=== PATIENT | male | born 1955 | race Caucasian/White ===

== ENCOUNTER 2024-11-09 09:24 | Emergency (ER) | payer MEDICARE, OTHER, SELFPAY ==
--- OUTSIDE RECORDS SUMMARY | 2024-11-09 09:26 | XMS_ITS | Clinical Summary ---
Author Organization [facility] Address [address] [place] [address] Care Team Providers Care Heel Painter Name Role Phone Elsewhere, Pcp Primary Care Provider Unavailabl e Source Comments Patient records contain information from all sites at [facility]. For routine questions regarding patient records, call [phone] during business hours, M-F 8:00 AM - 5:00 PM Central Time. Record requests for emergency care only can be directed to [phone] at any time.[facility] Allergies No known active allergies Medications clobetasoL (TEMOVATE) 0.05 % cream Apply topically as needed. 4 Active ibuprofen (ADVIL,MOTRIN) 200 mg capsule Take 200 mg by mouth as needed for pain. Active Hospital, Clinic, or Other Facility Administered Medication Ordered Dose Route Frequency Start Date End Date Status lidocaine (PF) 10 mg/mL (1 %) injection 10 mL (XYLOCAINE)Indications:Neurop athy Peroneal Left,Vasculitis 10 mL inj Once 05/15/2020 Active Active Problems Problem Noted Date Diagnosed Date Abnormal Magnetic Resonance Imaging Lumbar Spine 05/20/2020 Neuropathy Peripheral 05/01/2020 Overview (05/01/2020): Added automatically from request for surgery [id number] Family History Medical History Relation Name Comments Dementia Father Don Mejia Hypertension Father Don Mejia Coronary artery disease Mother Isi Mejia Hear t Attack,stents Dementia Paternal Grandmother Lulu Mejia gra ndmother Relation Name Status Comments Brother Don Mejia Father Don Mejia Mother Isi Mejia Paternal Grandmoisac Mejia Social History Tobacco Use Types Packs/Day Years Used Date Smoking Tobacco: Former Cigarettes Passive Smoke Exposure: Never Smokeless Tobacco: Never Tobacco Cessation:Counseling Given: Not Answered Alcohol Use Standard Drinks/Week Comments Yes 10 (1 standard drink = 0.6 oz pu re alcohol) Humiliation, Afraid, Rape, and Kick questionnair e Answer Date Recorded Within the last year, have y ou been afraid of your partner or ex-partner? No 08/04/2022 Within the last year, have y ou been humiliated or emotionally abused in other ways by your partner or ex-partner? No Within the last year, have y ou been kicked, hit, slapped, or otherwise physically hurt by your partner or ex-partner? No 08/04/2022 Within the last year, have y ou been raped or forced to have any kind of sexual activity by your partner or ex-partner? No 08/04/2022 Hunger Vital Sign Answer Date Recorded Within the past 12 months, y ou worried that your food would run out before you got the money to buy more. Never true 08/05/19 23 Within the past 12 months, t he food you bought just didn't last and you didn't have money to get more. Never true 08/04/2022 PRAPARE - Transportation Answer Date Re corded In the past 12 months, has l ack of transportation kept you from medical appointments or from getting medications? No 07/11 In the past 12 months, has l ack of transportation kept you from meetings, work, or from getting things needed for daily living? No 08/04/2022 Housing Stability Vital Sign Answer Gen e Recorded In the last 12 months, was t here a time when you were not able to pay the mortgage or rent on time? No 08/04/2022 In the last 12 months, how many places have you lived? 1 08/04/2022 In the last 12 months, was t here a time when you did not have a steady place to sleep or slept in a prison (including now)? No 08/04/2022 Education Answer Date Recorded What is the highest level of school you have completed or the highest degree you have received? Bachelor's degree (e.g., BA, AB, BS) 04/26/2020 Sex and Gender Information Value Date Recorded Sex Assigned at Male 03/22/2021 7:56 PM GASOLINE SERVICE ATTENDANT Legal Sex Male 8:59 AM GASOLINE SERVICE ATTENDANT Gender Identity Male 04/21/2020 4:02 PM GASOLINE SERVICE ATTENDANT Sexual Orientation Straight 04/21/2020 4: 02 PM GASOLINE SERVICE ATTENDANT Last Filed Vital Signs Vital Sign Reading Time Taken Comments Blood Pressure 128/74 08/09/2023 2:57 PM CDT Pulse 79 08/09/2023 2:57 PM CDT Temperature 36.6 C (97.9 F) 08/09/2023 2:57 PM CDT Respiratory Rate 13 05/06/2020 2:15 PM GASOLINE SERVICE ATTENDANT Oxygen Saturation 99% 05/06/2020 2:15 PM GASOLINE SERVICE ATTENDANT Inhaled Oxygen Concentration - - Weight 86.6 kg (190 lb 14.7 oz) 08/09/2023 2:57 PM CDT Height 187.6 cm (6' 1.86) 08/09/2023 2:57 PM CD T Body Mass Index 24.61 08/09/2023 2:57 PM CDT Plan of Treatment Health Maintenance Due Date Last Done Comments CT Colonography 1955 Colonoscopy 1955 FIT 1955 COVID-19 Vaccine ( season) 2023 01/30/2023, 12/16/2021, 07/10/2021, Additional history exists Depression Screening (Annual PHQ-2) 04/11/2024 Fall Risk Screen (Annual) 04/11/2024 Influenza Vaccine (#1) 2025 , 12/25/2021, 12/25/2020, Additional history exists Fasting Glucose for Diabetes Screening 08/08/2026 08/09/2023, 08/18/2021, 08/14/2021, Additional history exists Cologuard 10/16/2026 10/17/2023 Colorectal Cancer Screening 10/16/2026 DTaP,Tdap,and Td Vaccines (3 - Td or Tdap) 08/18/2030 08/18/2020, 07/05/2009 Zoster Vaccines Completed 11/13/2019, 06/2019, 06/09/2015 Hepatitis B Screening Discontinued 04/29/2020 Abdominal Aortic Aneurysm (AAA) Screen Completed 05/18/2020 Pneumococcal vaccine (50+ years) Completed 08/14/2021 HPV Vaccines Aged Out No longer eligi ble based on patient's age to complete this topic IPV Vaccines Aged Out No longer eligi ble based on patient's age to complete this topic Procedures Procedure Name Priority Date/Time Associated Diagnosis Comments COMPREHENSIVE METABOLIC PANEL, S/P Routine 08/09/2023 12:26 PM CDT Neuropathy Peripheral Vasculitic US ABDOMEN LIMITED LIVER RAD - Routine (most inpatients and all outpatients) 05/18/2020 2:37 PM GASOLINE SERVICE ATTENDANT Lesion Liver HEPATITIS B SURFACE ANTIGEN Routine 04/29/2020 9:29 AM GASOLINE SERVICE ATTENDANT Neuropathy Peroneal Left from Last 3 Months or Most Recently Relevant to Health Maintenance Results * Comprehensive Metabolic Panel (08/09/2023 12:26 PM CDT) Potassium, S 5.2 3.6 - 5.2 mmol/L 08/09/2023 4:20 PM CDT DTL Sodium, S 139 135 - 145 mmol/L 08/09/2023 4:20 PM CDT DTL Chloride, S 102 98 - 107 mmol/L 08/09/2023 4:20 PM CDT DTL Bicarbonate, S 26 22 - 29 mmol/L 08/09/2023 4:20 PM CDT DTL Anion Gap 11 7 - 15 08/09/2023 4:20 PM CDT DTL BUN (Blood Urea Nitrogen), S 17 8 - 24 mg/dL 08/09/2023 4:20 PM CDT DTL Creatinine 0.98 0.74 - 1.35 mg/dL 08/09/2023 4:20 PM CDT DTL Estimated GFR (eGFR) 83 >=60 mL/min/BS A 08/09/2023 4:20 PM CDT DTL Comment: Estimated GFR calculated using the 2020 CKD_EPI creatinine equation. Calcium, Total, S 9.6 8.8 - 10.2 mg/dL 08/09/2023 4:20 PM CDT DTL Glucose, S 84 70 - 140 mg/dL 08/09/2023 4:20 PM CDT DTL Protein, Total, S 6.3 6.3 - 7.9 g/dL 08/09/2023 4:20 PM CDT DTL Albumin, S 4.7 3.5 - 5.0 g/dL 08/09/2023 4:20 PM CDT DTL Aspartate Aminotransferase (AST), S 29 8 - 48 U/L 08/09/2023 4:20 PM CDT DTL Alkaline Phosphatase, S 52 40 - 129 U/L 08/09/2023 4:20 PM CDT DTL Alanine Aminotransferase (ALT), S 23 7 - 55 U/L 08/09/2023 4:20 PM CDT DTL Bilirubin, Total, S 0.7 0.0 - 1.2 mg/dL 08/09/2023 4:20 PM CDT DTL Blood (Blood, Venous) 08/09/2023 12:26 PM CDT 08/09/2023 1:01 PM CDT us Ayo Fox M.D. LAB BLOOD ADD-ON Final Res ult [address] [address] [place] [address], [facility] [address] [place] [address] * US Abdomen Limited Liver (05/18/2020 2:37 PM GASOLINE SERVICE ATTENDANT) Anatomical Region Laterality Modality Abdomen, Ultrasound RST LOS, Ultrasound ARZ LOS, Ultrasound FLA LOS N/A Ultrasound 05/18/2020 3:32 PM GASOLINE SERVICE ATTENDANT Impressions 05/18/2020 3:35 PM GASOLINE SERVICE ATTENDANT Small benign-appearing hepatic cyst. Examination otherwise unremarkable. Narrative 05/18/2020 3:35 PM GASOLINE SERVICE ATTENDANT EXAM: US ABDOMEN LIMITED LIVER COMPARISON: None FINDINGS: Liver: 1.2 x 0.9 cm cyst in the right hepatic lobe, liver otherwise normal. This should correlate with the subcentimeter hypodensity seen on PET CT 05/14/2020 (image 202). Bile ducts: Not dilated. Procedure Note Benitez Landry M.B., B.Ch. - 05/18/2020 EXAM: US ABDOMEN LIMITED LIVER COMPARISON: None FINDINGS: Liver: 1.2 x 0.9 cm cyst in the right hepatic lobe, liver otherwisenormal. This should correlate with the subcentimeter hypodensity seen on PET CT05/14/2020 (image 202). Bile ducts: Not dilated. IMPRESSION: Small benign-appearing hepatic cyst. Examination otherwise unremarkable. us Feliciano Warren M.D. IMG US PROCEDURES Final Resul t * Hepatitis B Surface Antigen (04/29/2020 9:29 AM GASOLINE SERVICE ATTENDANT) HBs Antigen, S Negative Negative 04/29/2020 3:07 PM GASOLINE SERVICE ATTENDANT [facility] Blood (Blood, Venous) 04/29/2020 9:29 AM GASOLINE SERVICE ATTENDANT 04/29/2020 1:39 PM GASOLINE SERVICE ATTENDANT Feliciano Warren M.D. LAB MICROBIOLOGY - BLOOD EVITA EDGAR Final Result [facility] [place] [address] [place] [address] [facility] Dept. of Laboratory Medicine and Pathology [address] [place] [address] from Last 3 Months or Most Recently Relevant to Health Maintenance Insurance MEDICARE [employer] Care Teams Heel Painter Relationship Specialty Start Date End Date Elsewhere, Pcp PCP - General Internal Medicine 08/18/21
--- OUTSIDE RECORDS SUMMARY | 2024-11-09 09:27 | XMS_ITS | Clinical Summary ---
Author Organization [employer] [facility] Address [address] [place] [id number] Care Team Providers Care Business Area Manager Name Role Phone Rakesh Chavez MD Primary Care Provider [phone] Allergies No known active allergies Medications clindamycin 1% (CLEOCIN-T) 1 % lotion 03/17/2021 Active Active Problems Problem Noted Date Diagnosed Date Mild Coronary artery calcification 11/11/2023 Overview (11/11/2023): Assess cholesterol yearly to determine if he would benefit from a statin. 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 He is on Methotrexate and Prednisone for this as of 08/13/2020. 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 Pain of left lower leg 03/31/2020 Melanoma in situ 01/13/2016 Actinic keratosis 03/04/2014 Routine general medical exam ination at a health care facility 03/19/2013 Encounters Date Type Department Care Team Description 10/16/2024 Telephone [facility] [address] [place] [address] Rakesh Chavez MD Failed Appointment 10/13/2024 Travel from Last 3 Months Immunizations Immunization Administration Dates Next Due AMB INFLUENZA IIV3 (AGE 65+ YRS) PF (Flu Clinic Only) 02/15/2019 Amb Influenza, Inactivated A IIV4 (Age 65+ Years) Preserv Free 01/30/2020 COVID-19 vaccine ([employer] 30mcg/0.3mL) 12YO+ BIVALENT PF, MDV 12/16/2021 COVID-19 vaccine ([employer] 30mcg/0.3mL) P F, MDV 07/23/2020,07/02/2020 Hepatitis A (Adult) 09/10/1998 Influenza, High-dose Quadrivalent Inactivated ,12/25/2020 Influenza, Inactivated AIIV4 (Age 65+ Years) Preserv Free 01/21/2023 Pneumococcal Conj 20-valent (Prevnar 20) 022 Tdap 08/18/2020,07/05/2009 Zoster (Shingrix-RZV, recombinant) 11/13/2019, Zoster (Zostavax-ZVL, live) 06/09/2015 Family History Medical History Relation Name Comments Deep vein thrombosis Brother Tra on life long anticoagulation COPD Father Other Father of old age at 93 w a fall and hip fx Coronary artery disease Mother sten ts Other Mother after a fa ll at 90 Relation Name Status Comments Brother Tra Alive Father (Age 93) Mother Social History Tobacco Use Types Packs/Day Years Used Date Smoking Tobacco: Never Smokeless Tobacco: Never Tobacco Cessation:Counseling Given: Yes Alcohol Use Standard Drinks/Week Comments Yes 7 (1 standard drink = 0.6 oz pur e alcohol) PHQ-2 Answer Date Recorded PHQ-2 TOTAL SCORE 0 10/11/2023 Social Connections Answer Date Recorded Do you often feel lonely or isolated from those around you? 0 10/09/2023 Alcohol Use Answer Date Recorded How often do you have a drink containing alcohol ? 4 10/06/2022 How many drinks containing a lcohol do you have on a typical day when you are drinking? 0 10/06/2022 How often do you have five or more drinks on one occasion? 0 10/06/2022 Financial Resource Strain Answer Date R ecorded Difficulty of Paying Living Expenses 3 10/09/2023 Difficulty of Paying Living Expenses Not on file 10/09/2023 Food Insecurity Answer Date Recorded Do you worry your food will run out before you are able to buy more? 1 10/09/2023 Transportation Needs Answer Date Record ed Does lack of transportation keep you from medica l appointments? 1 10/09/2023 Does lack of transportation keep you from work, meetings or getting things that you need? 1 10/09/2023 Housing Stability Answer Date Recorded What is your housing situation today? 1 10/09/2023 Utilities Answer Date Recorded Do you have trouble paying f or utilities (for example, heat, electricity, water, phone)? 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 Not on file Not on file Obstetrics History Last Filed Vital Signs Vital Sign Reading Time Taken Comments Blood Pressure 129/77 10/11/2023 8:36 AM CDT Pulse 59 10/11/2023 8:36 AM CDT Temperature 36.6 C (97.9 F) 05/20/2022 6:42 PM AWAKE OVERNIGHT COUNSELOR Respiratory Rate 16 05/20/2022 6:42 PM AWAKE OVERNIGHT COUNSELOR Oxygen Saturation 99% 10/11/2023 8:36 AM CDT Inhaled Oxygen Concentration - - Weight 86.1 kg (189 lb 12.8 oz) 10/11/2023 8:36 AM CDT Height 187.5 cm (6' 1.82) 10/11/2023 8:36 AM CD T Body Mass Index 24.49 10/11/2023 8:36 AM CDT Plan of Treatment Upcoming Encounters Date Type Department Care Team (Late st Contact Info) Description 11/27/2024 12:40 PM CDT Office Visit [facility] [address] [place] [address] Rakesh Chavez MD [address] [place] [address] Health Maintenance Due Date Last Done Comments RSV vaccine for adults or (1 - Risk 60-74 years 1-dose series) 2013 COVID-19 vaccine series ( season) 2023 01/30/2023, 12/16/2021, 07/10/2021, Additional history exists BMI (ht and wt on same day) for age 18+ 10/10/2024 10/11/2023, 10/06/2022, 08/14/2021, Additional history exists Depression screening for age 12+ 10/10/2024 10/11/2023, 10/06/2022, 10/06/2022, Additional history exists Medicare Wellness for age 65+ 10/11/2024 10/11/2023, 10/06/2022, 08/14/2021, Additional history exists Influenza Vaccine (#1) 2024 , 01/30/2020, 02/15/2019 Fecal testing sDNA-FIT (Cologuard) for age 45-75 10/16/2026 10/17/2023 Lipids for age 45-75 10/09/2028 10/10/2023, 05/27/2023, 01/11/2023, Additional history exists Tetanus booster 08/18/2030 08/18/2020, 07/05/2009 Zoster (shingles) series for age 50+ Completed 11/13/2019, 06/12/2019, 06/09/2015 Hepatitis C screening for age 18-79 Addressed 04/29/2020 (Verified in Care Everywhere or Patient Record) Overridden with the intention of not completing the topic Pneumococcal series for age 50+ Completed 08/14/2021 Hepatitis B series for 19+ Aged Out N o longer eligible based on patient's age to complete this topic Procedures Procedure Name Priority Date/Time Associated Diagnosis Comments SDNA-FIT EXTERNAL (COLOGUARD) Routine 10/17/2023 6:15 AM CDT Screening for colon cancer LIPID PANEL W REFLEX MEASURED LDL Routine 10/10/2023 11:53 AM CDT Other hyperlipidemia from Last 3 Months or Most Recently Relevant to Health Maintenance Results * SDNA-FIT EXTERNAL (COLOGUARD) (10/17/2023 6:15 AM CDT) NONINV COLON CA DNA+OCC BLD SCRN STL-IMP Negative Negative 10/22/2023 1:38 PM CDT [facility] (CLIA #:[id number]) Comment: NEGATIVE TEST RESULT. A negative Cologuard result indicates a low likelihood that a colorectal cancer (CRC) or advanced adenoma (adenomatous polyps with more advanced pre-malignant features) is present. The chance that a person with a negative Cologuard test has a colorectal cancer is less than 1 in 1500 (negative predictive value >99.9%) or has an advanced adenoma is less than 5.3% (negative predictive value 94.7%). These data are based on a prospective cross-sectional study of 10,000 individuals at average risk for colorectal cancer who were screened with both Cologuard and colonoscopy. (Xenia Houston. et al, N Engl J Med 2014;370(14):0315-5398) The normal value (reference range) for this assay is negative. COLOGUARD RE-SCREENING RECOMMENDATION: Periodic colorectal cancer screening is an important part of preventive healthcare for asymptomatic individuals at average risk for colorectal cancer. Following a negative Cologuard result, the [place] Cancer Society and U.S. Multi-Society Task Force screening guidelines recommend a Cologuard re-screening interval of 3 years. References: [place] Cancer Society Guideline for Colorectal Cancer Screening: https://www.cancer.org/cancer/vjkfm-faqppy-txrpic/tyfycvecq-belffkxjx-cqquofi/ac s-rec ommendations.html.; Danyel THOMAS, Raji ZIMMER, Jacky DominguezK, Colorectal Cancer Screening: Recommendations for Physicians and Patients from the U.S. Multi-Society Task Force on Colorectal Cancer Screening , Am J Gastroenterology 2017; 112:4792-0633. TEST DESCRIPTION: Composite algorithmic analysis of stool DNA-biomarkers with hemoglobin immunoassay. Quantitative values of individual biomarkers are not reportable and are not associated with individual biomarker result reference ranges. Cologuard is intended for colorectal cancer screening of adults of either sex, 45 years or older, who are at average-risk for colorectal cancer (CRC). Cologuard has been approved for use by the U.S. FDA. The performance of Cologuard was established in a cross sectional study of average-risk adults aged 50-84. Cologuard performance in patients ages 45 to 49 years was estimated by sub-group analysis of near-age groups. Colonoscopies performed for a positive result may find as the most clinically significant lesion: colorectal cancer [4.0%], advanced adenoma (including sessile serrated polyps greater than or equal to 1cm diameter) [20%] or non- advanced adenoma [31%]; or no colorectal neoplasia [45%]. These estimates are derived from a prospective cross-sectional screening study of 10,000 individuals at average risk for colorectal cancer who were screened with both Cologuard and colonoscopy. (Xenia Thornton et al, N Engl J Med 2014;370(14):4366-2711.) Cologuard may produce a false negative or false positive result (no colorectal cancer or precancerous polyp present at colonoscopy follow up). A negative Cologuard test result does not guarantee the absence of CRC or advanced adenoma (pre-cancer). The current Cologuard screening interval is every 3 years. ([place] Cancer Society and U.S. Multi-Society Task Force). Cologuard performance data in a 10,000 patient pivotal study using colonoscopy as the reference method can be accessed at the following location: www.Genomind/results. Additional description of the Cologuard test process, warnings and precautions can be found at www.Droplet Technologyrd.com. Stool specimen (specimen) (Rectum) 10/17/2023 6:15 AM CDT 10/19/2023 9:48 AM CDT us Rakesh Chavez MD URINE Final Resu lt [facility] (CLIA #:[id number]) Yaquelin Gi[address] [place] [place] [address], * (ABNORMAL) LIPID PANEL W REFLEX MEASURED LDL (10/10/2023 11:53 AM CDT) CHOLESTEROL,TOTAL 207(H) 100 - 199 mg/dL 10/11/2023 3:43 AM CDT [facility] Comment: Cholesterol, Total Reference Ranges Desirable <200 mg/dL Borderline 200-239 mg/dL High >=240 mg/dL TRIGLYCERIDES 44 <150 mg/dL 10/11/2023 3:43 AM CDT [facility] HDL CHOLESTEROL 73 >40 mg/dL 3:43 AM CDT [facility] NON-HDL CHOLESTEROL 134 <145 mg/dl 10/11/2023 3:43 AM CDT [facility] CHOL/HDL RATIO 2.84 <4.50 10/11/2023 3:43 AM CDT [facility] LDL CHOLESTEROL 125 <=130 mg/dL 10/11/2023 3:43 AM CDT [facility] VLDL CHOLESTEROL 9 <=30 mg/dL 10/11/2023 3:43 AM CDT [facility] PROVIDER ORDERED STATUS RANDOM 10/11/2023 3:43 AM T [facility] Blood BLOOD SPECIMEN / Unknown Venipuncture / Unknown 10/10/2023 11:53 AM CDT 10/10/2023 11:55 AM CDT us Rakesh Chavez MD CHEMISTRY [facility]u [facility] [address] [address], from Last 3 Months or Most Recently Relevant to Health Maintenance Insurance [employer] MEDICARE PART A HB ONLY MEDICARE PART B HB ONLY MEDICARE PB ONLY Advance Directives Documents on File Type Date Recorded Patient Second Cutter Expl anation Healthcare Directive 05/07/2013 014 * Full Code (Latest Code Status on File) Date Activated Date Inactivated Comments 01/13/2016 8:24 AM 01/13/2016 1:46 PM Care Teams Business Area Manager Relationship Specialty Start Date End Date Rakesh Chavez MD [address] [place] [address] PCP - General Family Practice 02/25/20
[2024-11-09 09:40] VITALS: BP 140/80; PULSE 69; RESP 16; TEMP 37.1; O2SAT 93; BMI 23.1
--- NOTE | 2024-11-12 17:03 | ED_ITS ---
HPI - General Adult General Chief complaint: Skin/Abscess/Foreign Body Stated complaint: Bee sting L hand, swollen Time Seen by Provider: 11/09/24 09:47 History of Present Illness HPI narrative: Ring stuck on left ring finger after swelling from bee sting at 0730. Was seen at , unable to remove ring with cutter there. 68 year-old man presenting to the emergency department following a bee sting to his left ring finger. This is where his wedding ring resides. He did tweezer out the stinger and then realized that he could not get his ring off. Presented to urgent care where they they struggled with a ring cutter and so directed to the emergency department. By the time I am seeing Mr. Mejia, the ring has already been cut from his finger. He has not had any symptoms of throat tightness or difficulty breathing. Just pain and irritation at the 4th finger of his left hand and over the dorsum of the hand. Related Data Home Medications ?Medication ?Instructions ?Recorded ?Confirmed diphenhydramine HCl [Benadryl] PO 11/09/24 11/09/24 Allergies Allergy/AdvReac Type Severity Reaction Status Date / Time No Known Drug Allergies Allergy Verified 11/09/24 08:34 Review of Systems Status of ROS: Reports: 6 or more systems reviewed and unremarkable except as noted in History and below PFSH PFS Social History Smoking Status: Unknown if ever smoked Exam Narrative: Exam Narrative: Pleasant. NAD. The ring is lying on the counter next to Mr. Mejia where I see him. I do not hear any stridor wheeze. Breathing easily. Heart rate is regular. Examination of the left hand shows mildly erythematous and mildly puffed up left ring finger and dorsum of the hand. Site of sting is evident but no foreign body remaining it appears. Const: Documenting provider has reviewed patient's vital signs: yes Course Vital Signs Vital signs: Initial Vital Signs Temperature 98.8 F 11/09/24 09:40 Temperature Source Temporal Artery Scan 11/09/24 09:40 Pulse Rate 69 11/09/24 09:40 Respiratory Rate 16 11/09/24 09:40 Blood Pressure 140/80 H 11/09/24 09:40 Blood Pressure Mean 100 11/09/24 09:40 Blood Pressure Position Sitting 11/09/24 09:40 Pulse Oximetry 93 11/09/24 09:40 Oxygen Delivery Method Room Air 11/09/24 09:40 Vital Signs Temperature 98.8 F 11/09/24 09:40 Pulse Rate 69 11/09/24 09:40 Respiratory Rate 16 11/09/24 09:40 Blood Pressure 140/80 H 11/09/24 09:40 Pulse Oximetry 93 11/09/24 09:40 Oxygen Delivery Method Room Air 11/09/24 09:40 Temperature 98.8 F 11/09/24 09:40 Pulse Rate 69 11/09/24 09:40 Respiratory Rate 16 11/09/24 09:40 Blood Pressure 140/80 H 11/09/24 09:40 Pulse Oximetry 93 11/09/24 09:40 Oxygen Delivery Method Room Air 11/09/24 09:40 Medical Decision Making MDM Narrative Medical decision making narrative: Does not appear that there is any further intervention is needed. There is no skin breakdown in least hourly visible. Discussed [id number] treatments that would be available. See patient discharge plan for further discussion As you asked, certainly could take Zyrtec yet today. If you have any indication difficulty breathing or throat tightness I would take a couple tabs of diphenhydramine and present to the emergency department. Could use topical hydrocortisone for itch or irritation. Otherwise I would just apply ice packs as needed. Discharge Plan Discharge Clinical Impression: Bee sting Patient Disposition: Home w/ Parent or Adult Condition: Improved Additional Instructions: As you asked, certainly could take Zyrtec yet today. If you have any indication difficulty breathing or throat tightness I would take a couple tabs of diphenhydramine and present to the emergency department. Could use topical hydrocortisone for itch or irritation. Otherwise I would just apply ice packs as needed. Prescriptions: No Action diphenhydramine HCl [Benadryl] PO Follow Up/Referrals: Rakesh Chavez MD [Primary Care Provider, Family Practice] Stand Alone [facility] Info Instructions
== END 2024-11-09 09:59 | disposition home or self-care (01) ==
LOC: ED 09:55
PROVIDERS: Emergency Provider Family Medicine; PCP Family Medicine
DX: S60.512A Abrasion of left hand, initial encounter (principal); T63.441A Toxic effect of venom of bees, accidental (unintentional), initial encounter
CPT/HCPCS: 99283